=== PATIENT | male | born 1965 | race Caucasian/White ===

== ENCOUNTER 2017-04-16 09:47 | Day surgery (SDC) | payer BC ==
[2017-04-15 07:54] VITALS: BMI 42.0
[~2017-04-16] VITALS: Ht 175.3 cm; Wt 131.4 kg
--- NOTE | 2017-04-16 07:10 | History and Physical ---
History & Physical Date Apr 16, 2017. Chief Complaint Patient presents with ongoing pain left shoulder with rotator cuff tear SLAP lesion as well as before meals joint DJD impingement History of Present Illness The patient is a 51 year old male with complaints of ongoing shoulder pain large muscle conservative therapy including injections physical therapy relative rest activity modification Additional History Hepatic Disease: No Endocrine Disorder: Yes Kidney Disease: No Hypertension: No Heart Disease: No Bleeding Tendencies: No Infectious Diseases: No Allergies Coded Allergies: No Known Allergies (Unverified , 04/15/17) Home Medications Scheduled Atorvastatin (Lipitor), 10 MG PO sun, wed Escitalopram (Lexapro), 10 MG PO QAM Metformin Hcl (Glucophage), 500 MG PO BID Pantoprazole (Protonix), 40 MG PO QAM Physical Examination Skin: warm/dry, no rash Eyes: normal inspection, EOMI, sclerae normal ENT: normal ENT inspection, pharynx normal Head: normocephalic, atraumatic Neck: supple, no adenopathy, trachea midline Respiratory/Chest: lungs clear, normal breath sounds, no respiratory distress Cardiovascular: regular rate, rhythm, no edema, no murmur Abdomen / GI: normal bowel sounds, non tender Back: normal inspection Extremities: normal inspection, normal range of motion, + pertinent finding ( tear rotator cuff) Neurologic/Psych: no motor/sensory deficits, alert, normal reflexes, oriented x 3 Diagnosis Painful right shoulder torn rotator cuff syndrome and before meals joint DJD Plan of Treatment Arthroscopy. Permanent plasty possible distal clavicle excision was SLAP repair
--- NOTE | 2017-04-16 07:14 | History & Physical Bridge Note ---
H&P Re-Evaluation Bridge Note: I have examined the patient, reviewed the History & Physical and in the interval since the performance of the History & Physical I have noted the following changes of clinical significance: No changes noted
[~2017-04-16 09:47] MED LIST: ATOR10TA88 PO; CEFAZOLIN 3000 MG/65 ML D5W IV SCH; ESCI10TA17 PO; LACTATED RINGER'S 1000ML 1,000 ML IV SCH; METF500T PO; PANT40TA PO; ROPIVACAINE 0.5% 5 MG/ML 30 ML VIAL ONE
[2017-04-16 10:21] VITALS: BP 132/98; PULSE 71; TEMP 36.4; O2SAT 100; Ht 175.3 cm; Wt 131.4 kg
[2017-04-16 10:44] LABS: PARTIAL THROMBOPLASTIN RATIO 1.2
[2017-04-16] MEDS ORDERED: FENTANYL CITRATE INJ 50 MCG/1 ML 2 ML VIAL IV PRN (11:15)
[2017-04-16] MEDS ORDERED: HYDROmorphone INJ 1 MG/ML SYR IV PRN (11:15)
[2017-04-16] MEDS ORDERED: LABETALOL HCL IV 5 MG/ML 20ML IV PRN (11:15)
[2017-04-16] MEDS ORDERED: MEPERIDINE HCL 25 MG/ML CARP IV PRN (11:15)
[2017-04-16] MEDS ORDERED: EpHEDrine SULFATE INJ 50 MG/ML AMP IV PRN (11:15)
[2017-04-16] MEDS ORDERED: ATROPINE SULFATE 0.1 MG/ML 5ML SYR IV PRN (11:15)
[2017-04-16] MEDS ORDERED: ONDANSETRON INJ 2 MG/ML 2 ML VIAL IV PRN ×2 (11:15→15:00)
--- NOTE | 2017-04-16 11:48 | History & Physical Bridge Note ---
H&P Re-Evaluation Bridge Note: I have examined the patient, reviewed the History & Physical and in the interval since the performance of the History & Physical I have noted the following changes of clinical significance: No changes noted patient noted to have small skin tag superior aspect of his left shoulder removed at the time of surgery discussed patient discussed with patient.
[2017-04-16] MEDS ORDERED: EpHEDrine SULFATE INJ 50 MG/ML AMP ONE (11:56)
[2017-04-16] MEDS ORDERED: SUCCINYLCHOLINE CHLORIDE 20 MG/ML 10 ML VIAL IV ONE (11:56)
[2017-04-16] MEDS ORDERED: PROPOFOL IV EMULSION 10 MG/ML 20 ML VIAL IV ONE ×2 (11:56→14:39)
[2017-04-16] MEDS ORDERED: MIDAZOLAM HCL 1 MG/ML 2ML VIAL ONE ×2 (11:56→11:57)
[2017-04-16] MEDS ORDERED: LIDOCAINE HCL 2% 2 ML VIAL (20MG/ML) ONE (11:56)
[2017-04-16] MEDS ORDERED: NEOSTIGMINE METHYLSULFATE 5 MG/5 ML SYR ONE (11:56)
[2017-04-16] MEDS ORDERED: PHENYLEPHRINE HCL INJ 10 MG/ML VIAL ONE (11:56)
[2017-04-16] MEDS ORDERED: ONDANSETRON INJ 2 MG/ML 2 ML VIAL ONE (11:56)
[2017-04-16] MEDS ORDERED: GLYCOPYRROLATE INJ 0.2 MG/ML VIAL ONE ×2 (11:56→14:39)
[2017-04-16] MEDS ORDERED: ROCURONIUM BROMIDE 10 MG/ML 5 ML VIAL IV ONE (11:56)
[2017-04-16] MEDS ORDERED: DEXAMETHASONE SOD INJ 4 MG/ML VIAL ONE (11:56)
[2017-04-16] MEDS ORDERED: FENTANYL CITRATE INJ 50 MCG/1 ML 2 ML VIAL ONE (11:57)
[2017-04-16] MEDS ORDERED: EpINEphrine HCL INJ 1 MG/ML 5ML SYRINGE ONE (12:39)
--- NOTE | 2017-04-16 12:57 | History & Physical Bridge Note ---
H&P Re-Evaluation Bridge Note: I have examined the patient, reviewed the History & Physical and in the interval since the performance of the History & Physical I have noted the following changes of clinical significance: No changes noted the left shoulder is the correct shoulder will also remove a skin tag left shoulder
--- NOTE | 2017-04-16 12:59 | History and Physical ---
History & Physical Date Apr 16, 2017. Chief Complaint Left shoulder pain with impingement syndrome rotator cuff tear left shoulder History of Present Illness The patient is a 51 year old male with complaints of left shoulder pain rotator cuff tear before meals joint DJD impingement syndrome left shoulder Additional History Hepatic Disease: No Endocrine Disorder: No Kidney Disease: No Hypertension: No Heart Disease: No Bleeding Tendencies: No Infectious Diseases: No Allergies Coded Allergies: No Known Allergies (Unverified , 04/16/17) Home Medications Scheduled Atorvastatin (Lipitor), 10 MG PO sun, fri Escitalopram (Lexapro), 10 MG PO QAM Pantoprazole (Protonix), 40 MG PO QAM Physical Examination Skin: warm/dry, no rash Eyes: normal inspection, EOMI, sclerae normal ENT: normal ENT inspection, pharynx normal Head: normocephalic, atraumatic Neck: supple, no adenopathy, trachea midline Respiratory/Chest: lungs clear, normal breath sounds, no respiratory distress Cardiovascular: regular rate, rhythm, no edema, no murmur Abdomen / GI: normal bowel sounds, non tender Back: normal inspection Extremities: normal inspection, normal range of motion, + pertinent finding Neurologic/Psych: no motor/sensory deficits, alert, normal reflexes, oriented x 3 Diagnosis Care rotator cuff left shoulder small skin tag left shoulder Plan of Treatment Arthroscopy left shoulder rotator cuff repair acromioplasty distal clavicle excision possible SLAP repair as well as removal small skin tag left shoulder
--- NOTE | 2017-04-16 14:50 | [facility] Operative Report ---
Operative Report Operative Date Apr 16, 2017. Pre-Operative Diagnosis Left Shoulder with Rotator Cuff Tear Superior Labral Tear from Anterior to Posterior Lesion Joint; Degenerative Joint Disease Impingement Post-Operative Diagnosis Same as preop Procedure(s) Performed Left Shoulder Arthoscopy with Subacromial Decompression, Distal Clavicle Excision, Superior Labrum Anterior and Posterior Repair, Acromioplasty Surgeon Dr. Luna Truer Pinion And Wheel Surgeon(s) Daniel Whitman PA-C Estimated Blood Loss 5 ml Findings Presents with a SLAP lesion type 2 25% their biceps tendon articular side rotator cuff tear impingement syndrome and before meals joint DJD long unresponsive to conservative management for arthroscopic evaluation. Specimens none per surgeon Complication(s) None Disposition Recovery Room / PACU Indications Patient presents with before meals joint DJD impingement syndrome particular side cuff tear SLAP lesion for arthroscopic evaluation and repair patient's failed attempts at conservative management including injections relative rest activity modifications physical therapy and presents with ongoing shoulder pain Description of Procedure After proper prepping and draping left shoulder region or scopic examination beginning region of the glenohumeral joint revealed there to be a tear involving the superior labrum from 10:00 to 2:00 with fraying the biceps tendon anchor involving approximately 25% of the tendon of the rotator cuff had a small articular side flap tear which was debrided to stable margin socially utilizing Arthrex 1.3 mm all suture anchors 2 suture double loaded suture anchor tapes were placed the labrum was repaired back to bed of bleeding bone and the biceps tendon anchor was debrided with a stable margin articular side of the rotator cuff was also debrided to a stable margin socially operative. Mild debris is removed the subacromial space revealed evidence of a type 2-3 acromion as well as before meals joint DJD subsequently an anterior inferior chromoplasty performed as well as a distal clavicle excision operative management of region with 5 1 x 2 mm skin tags removed from the superior aspect of the anterior lateral portion of the shoulder patient has improved closed was taken to recovery in stable condition operative report dictated by Jeremy please note Daniel SANDRA was necessary for prepping draping suture management in position and closure was necessary for the case I attest to the content of the Intraoperative Record and any orders documented therein. Any exceptions are noted below.
[2017-04-16] MEDS ORDERED: SODIUM CHLORIDE 0.9% 1000ML 1,000 ML IV SCH (14:51)
[2017-04-16] MEDS ORDERED: OXYC-57 PO (14:52)
--- NOTE | 2017-04-16 14:54 | Discharge Instructions ---
Discharge Instructions Date of Service Apr 16, 2017. Visit Reason for Visit: Left Shoulder Osteoarthritis, Rotator Cuff Tear/Ru Discharge Discharge Diagnosis / Problem: left shoulder scope, SLAP repair Discharge Goals Goal(s): Decrease discomfort, Improve function, Increase independence Activity Recommendations Activity Limitations: as noted below Anesthesia . Post Anesthesia Instructions: If you have had General Anesthesia or IV Sedation: * Do not drive today. * Resume driving when surgeon permits. * Do not make important decisions or sign legal documents today. * Call surgeon for: 1. Temperature elevations greater than 101 degrees F. 2. Uncontrollable pain. 3. Excessive bleeding. 4. Persistent nausea and vomiting. 5. Medication intolerance (nausea, vomiting or rash). * For nausea and vomiting use only clear liquids such as: tea, soda, bouillon until nausea subsides, then gradually increase diet as tolerated. * If you have any concerns or questions, call your surgeon's office. If physician is unavailable and it is an emergency, call 911 or go to the nearest emergency room. . Instructions / Follow-Up Instructions / Follow-Up U DISCHARGE INSTRUCTIONS: SLAP REPAIR SELF CARE INSTRUCTIONS A. You are permitted to loosen your sling/immobilizer to move your elbow, wrist , and hand to prevent stiffness. You should use your well arm (good arm) to assist the operated extremity when trying to raise the arm away from the body, hygiene purposes. Do NOT actively try to use/engage your shoulder muscles in operative arm at this time. You should NOT do overhead activity, lifting, or attempt to reach behind your back. B. You may/may not be instructed to start Physical Therapy upon discharge depending upon the size and difficulty of the repair. You will be provided a prescription for therapy with specific restrictions, if needed, at time of discharge. C. At 48 hours post-operatively, you may change your dressing. (Leave white steri-strips intact if present). Use band-aids and change daily. You are allowed to shower at this time and get the incision area wet, but DO NOT soak or submerge incision area in water. (No baths, swimming pools, hot tubs) D. Do NOT apply soap or any ointment/lotions directly over incision. E. You may use ice as needed to operative shoulder SPECIAL CARE INSTRUCTIONS: VERY IMPORTANT TO READ AND REVIEW A. There are a few signs you need to watch for after you are home. Call [facility] at [phone] if you experience any of the following: a. Increased severe shoulder pain. Some pain is expected especially when you exercise b. Increased swelling in your shoulder or arm; pain or swelling in either upper extremity. (Note: swelling and stiffness is normal and expected for several weeks post op, depending on type of shoulder surgery you had). c. Any fluid or drainage from the incision; redness of the incision. d. Shortness of breath or chest pain. B. Please call [facility] at [phone] if you have any questions or concerns about your operation or recovery. C. Call your physician if: a. Temperature is greater than 101 degrees (F). b. Pain is not relieved by prescribed pain medications. c. Increase drainage or redness from incision. d. Unanswered questions or concerns. D. Pain Medication: a. You will be prescribed pain medication upon discharge that should last till your first post-operative appointment. b. If you experience nausea and/or skin rash, discontinue this medication and contact our office for an alternative medication. c. Caution- narcotic pain medication can cause constipation. FOLLOW UP VISIT: Please call [facility] at [phone] to schedule a follow up appointment 10-14 days from your surgery date. Diet Recommendations Recommended Home Diet: resume previous diet Procedures Procedures Performed: Left Shoulder Arthoscopy with Subacromial Decompression, Distal Clavicle Excision, Superior Labrum Anterior and Posterior Repair, Acromioplasty Pending Studies Studies pending at discharge: no Medical Emergencies . Who to Call and When: Medical Emergencies: If at any time you feel your situation is an emergency, please call 911 immediately. . Non-Emergent Contact Non-Emergency issues call your: Primary Care Provider, Surgeon . . "Provider Documentation" section prepared by Daniel Whitman. . [place] Drug Monitoring Program Search Results: patient reviewed within database, no issues identified
[2017-04-16] MEDS ORDERED: OXYCODONE/ACETAMINOPHEN 5-325 TAB PO PRN ×2 (15:00)
--- NOTE | 2017-04-16 15:48 | Anesthesiology Progress Note ---
Anesthesia Post Op Note Date & Time Apr 16, 2017 at 15:48 Vital Signs Pain Intensity: 0 Vital Signs Past 12 Hours Date Time Temp Pulse Resp B/P (MAP) Pulse Ox O2 Delivery O2 Flow Rate FiO2 04/16/17 15:35 36.4 74 17 127/80 95 Nasal Cannula 04/16/17 15:25 71 18 124/81 96 Nasal Cannula 04/16/17 15:15 77 20 134/85 100 Oxymask 10 04/16/17 15:05 76 20 139/89 99 Oxymask 10 04/16/17 14:58 36.0 81 20 153/81 98 Oxymask 10 04/16/17 10:21 36.4 71 18 132/98 (109) 100 Room Air Notes Mental Status: alert / awake / arousable, participated in evaluation Pt Amnestic to Procedure: Yes Nausea / Vomiting: adequately controlled Pain: adequately controlled Airway Patency, RR, SpO2: stable & adequate BP & HR: stable & adequate Hydration State: stable & adequate Anesthetic Complications: no major complications apparent Block working well in pacu
[2017-04-16 15:50] VITALS: BP 125/75; PULSE 68; TEMP 36.7; O2SAT 95
[2017-04-16 16:20] VITALS: BP 131/81; PULSE 68; O2SAT 93
[2017-04-16 17:00] VITALS: BP 134/79; PULSE 77; TEMP 36.7; O2SAT 93
== END 2017-04-16 17:15 | disposition home or self-care (01) ==
LOC: C.ACU 09:47
PROVIDERS: ATTEND Orthopaedic Surgery
DX: S43.432A Superior glenoid labrum lesion of left shoulder, initial encounter (principal); M75.42 Impingement syndrome of left shoulder; X58.XXXA Exposure to other specified factors, initial encounter; M19.012 Primary osteoarthritis, left shoulder; Z79.84 Long term (current) use of oral hypoglycemic drugs; Z79.899 Other long term (current) drug therapy